=== PATIENT | male | born 1975 | race Caucasian/White ===

== ENCOUNTER 2023-03-31 21:54 | Inpatient (IN) | payer BC ==
[~2023-03-31] VITALS: Ht 152.4 cm; Wt 69.9 kg
[2023-03-31] MEDS ORDERED: FINA5TAB11 PO (22:22)
[2023-03-31] MEDS ORDERED: IV NORMAL SALINE 1000 ML BAG IV ONE (22:45)
[2023-03-31 23:12] LABS: HEMOGLOBIN 12.6 g/dL (12.5-16.3); MEAN CORPUSCULAR HEMOGLOBIN 30.8 uug (23.8-33.4); RED CELL DISTRIBUTION WIDTH 13.6 % (12.1-16.2); WHITE BLOOD COUNT (AUTO) 8.8 K/uL (3.6-10.2)
[2023-03-31 23:16] LABS: BASOPHILS # (AUTO) 0.1 K/UL (0.0-0.2); BASOPHILS % (AUTO) 0.7 % (0.0-2.0); DIFFERENTIAL COMMENT 0; EOSINOPHILS # (AUTO) 0.1 K/uL (0.0-0.7); EOSINOPHILS % (AUTO) 0.9 % (0.0-7.0); HEMATOCRIT 36.8 % (36.7-47.1); LYMPHOCYTES # (AUTO) 1.4 K/uL (0.8-4.8); LYMPHOCYTES % (AUTO) 16.4 % (20.5-51.5); MEAN CORPUSCULAR HGB CONC 34 g/dL (32.5-36.3); MEAN CORPUSCULAR VOLUME 89.8 fL (73.0-96.2); MONOCYTES # (AUTO) 0.5 K/uL (0.1-1.30); MONOCYTES % (AUTO) 5.9 % (0.0-11.0); NEUTROPHILS # (AUTO) 6.7 K/uL (1.8-8.9); NEUTROPHILS % (AUTO) 76.1 % (38.5-71.5); PLATELET COUNT (AUTO) 214 K/uL (152-348)
[2023-03-31 23:19] LABS: CALCIUM 8.3 mg/dL (8.5-10.1); CARBON DIOXIDE 25 mmol/L (21-32); CHLORIDE 107 mmol/L (98-107); CREATININE 1.2 mg/dL (0.6-1.3); GLUCOSE 120 mg/dL (74-106); POTASSIUM 3.6 mmol/L (3.5-5.1); SODIUM SERUM 143 mmol/L (136-145); UREA NITROGEN, BLOOD 11 mg/dL (7-18)
[2023-03-31 23:27] LABS: ALANINE AMINOTRANSFERASE 30 U/L (16-63); ALBUMIN 3.3 g/dL (3.4-5.0); ALKALINE PHOSPHATASE 40 U/L (50-136); ASPARTATE AMINOTRANSFERASE 27 U/L (15-37); BILIRUBIN,DIRECT 0.1 mg/dL (0.0-0.2); BILIRUBIN,TOTAL 0.3 mg/dL (0.2-1.0); TOTAL PROTEIN, SERUM 5.7 g/dL (6.4-8.2)
[2023-04-01] MEDS ORDERED: LIDOCAINE 1%-EPI 1:100,000 20 ML VIAL ONE (00:36)
[2023-04-01] MEDS ORDERED: NEOMY/BACITRA/POLYMYXIN B OINT UD PACKET TP ONE (01:20)
[2023-04-01] MEDS ORDERED: ONDANSETRON 4 MG/2 ML VIAL IV PRN (01:45)
[2023-04-01] MEDS ORDERED: IV NS 1000 ML 1,000 ML IV PRN (01:45)
[2023-04-01] MEDS ORDERED: ACETAMINOPHEN 325 MG TABLET PO PRN (01:45)
[2023-04-01 02:40] LABS: *BILIRUBIN,URIN NEGATIVE (NEGATIVE); *CLARITY,URINE CLEAR (CLEAR); *COLOR,URINE YELLOW (YELLOW); *KETONES,URINE TRACE (NEGATIVE); *PROTEIN,URINE NEGATIVE (NEGATIVE); *UROBILINOGEN,URINE 0.2 E.U./dl (NORMAL); LEUKOCYTE ESTERASE ,URINE NEGATIVE (NEGATIVE); NITRITE, URINE NEGATIVE (NEGATIVE); UGLUCOSE NEGATIVE (NEGATIVE)
[2023-04-01 02:48] LABS: *BLOOD, URINE NEGATIVE (NEGATIVE)
[2023-04-01 02:51] LABS: BACTERIA,URINE NONE SEEN /HPF (NONE SEEN); RBC,URINE 0-3 /HPF (0-3); WBC,URINE NONE SEEN /HPF (0-3)
[2023-04-01 02:52] LABS: SQUAMOUS EPITHELIAL CELL,UR NONE SEEN /HPF (NONE SEEN)
[2023-04-01 02:56] LABS: *AMPHETAMINE, URINE NEGATIVE (NEGATIVE); *BARBITURATE, URINE NEGATIVE (NEGATIVE); *BENZODIAZEPINE, URINE NEGATIVE (NEGATIVE); *CANNABINOID, URINE POSITIVE (NEGATIVE); *COCCAINE, URINE NEGATIVE (NEGATIVE); *OPIATE, URINE NEGATIVE (NEGATIVE); *PHENCYCLIDINE SCREEN,URINE NEGATIVE (NEGATIVE); FENTANYL, URINE NEGATIVE (NEGATIVE)
[2023-04-01] MEDS ORDERED: ONDANSETRON 4 MG/2 ML VIAL ONE (05:51)
[2023-04-01] MEDS ORDERED: ACETAMINOPHEN 325 MG TABLET ONE (05:51)
[2023-04-01 11:07] VITALS: BP 111/76; O2SAT 99
== END 2023-04-01 11:00 | disposition home or self-care (01) | DRG 74 ==
LOC: ER 21:56 → TRANSITION 04-01 01:34
PROVIDERS: ADMIT Internal Medicine; ATTEND Internal Medicine
PROC: 0HQ0XZZ Repair Scalp Skin, External Approach (ICD-10-PCS; principal; 2023-03-31)
DX: G90.8 Other disorders of autonomic nervous system (principal); E44.0 Moderate protein-calorie malnutrition; S01.01XA Laceration without foreign body of scalp, initial encounter; W18.30XA Fall on same level, unspecified, initial encounter; Y92.511 Restaurant or cafe as the place of occurrence of the external cause; E88.09 Other disorders of plasma-protein metabolism, not elsewhere classified; E86.0 Dehydration; F19.10 Other psychoactive substance abuse, uncomplicated; Z68.30 Body mass index [BMI] 30.0-30.9, adult; F10.90 Alcohol use, unspecified, uncomplicated
CPT/HCPCS: 36415; 70450; 71045; 83605; 84484; 85025; 87040; 93005; A4663; G0378; G0480; J2405; J3490; J7040